=== PATIENT | female | born 1965 | race Caucasian/White ===

== ENCOUNTER 2016-11-06 08:11 | Day surgery (SDC) | payer MEDICARE, MEDICAID ==
[~2016-11-06] VITALS: Ht 162.6 cm; Wt 83.9 kg
[2016-11-06] VITALS (8 sets, daily range): BP systolic 103–120; BP diastolic 61–70; PULSE 68–88; TEMP 97.5–97.7
[2016-11-06] MEDS ORDERED: MACRODANTIN50 MG/CA1 PO (08:58)
[2016-11-06] MEDS ORDERED: SYNTHROID 0.0.025 MG PO (09:00)
[2016-11-06] MEDS ORDERED: IBU800 M1 PO (09:01)
[2016-11-06] MEDS ORDERED: FLOMAX 0.40.4 MG/CAP PO (09:02)
[2016-11-06] MEDS ORDERED: FLONASE NASAL S16 GM NS (09:09)
[2016-11-06] MEDS ORDERED: K-DUR20 MEQ PO (09:11)
[2016-11-06] MEDS ORDERED: ENULOSE10 GM/151 PO (09:13)
[2016-11-06] MEDS ORDERED: GLUCOPHAGE1000 MG PO (09:14)
[2016-11-06] MEDS ORDERED: GRALISE600 MG PO (09:15)
[2016-11-06] MEDS ORDERED: ZANAFLEX 4MG TAB4 MG PO (09:15)
[2016-11-06] MEDS ORDERED: FAMVIR 500500 MG/TAB PO (09:16)
[2016-11-06] MEDS ORDERED: ACTIGALL 300MG300 MG PO (09:17)
[2016-11-06] MEDS ORDERED: LASIX 40MG TABL40 MG PO (09:18)
[2016-11-06] MEDS ORDERED: VITAMIN D 50,1.25 MG PO (09:19)
[2016-11-06] MEDS ORDERED: FERRO-TIME325 MG PO (09:19)
[2016-11-06] MEDS ORDERED: COMBIRESP IH (09:20)
[2016-11-06] MEDS ORDERED: MAG-OX 400400 MG/TAB PO (09:21)
[2016-11-06] MEDS ORDERED: NATURAL E400 IU PO (09:21)
[2016-11-06] MEDS ORDERED: VITAMIN D31000 I1 PO (09:22)
[2016-11-06] MEDS ORDERED: CALCIUM CARBON650 M2 (09:23)
[2016-11-06] MEDS ORDERED: VITAMINC1000TA PO (09:23)
[2016-11-06] MEDS ORDERED: MULTI VITAMINS1 TAB PO (09:24)
[2016-11-06] MEDS ORDERED: ZOVIRAX 200MG200 MG PO (09:25)
== END 2016-11-06 11:40 | disposition home or self-care (01) ==
LOC: SDCO 08:11
DX: K25.7 Chronic gastric ulcer without hemorrhage or perforation (principal); K74.60 Unspecified cirrhosis of liver; K21.9 Gastro-esophageal reflux disease without esophagitis; K75.81 Nonalcoholic steatohepatitis (NASH); R74.8 Abnormal levels of other serum enzymes; K62.89 Other specified diseases of anus and rectum; D64.9 Anemia, unspecified; E11.9 Type 2 diabetes mellitus without complications; K44.9 Diaphragmatic hernia without obstruction or gangrene; E78.00 Pure hypercholesterolemia, unspecified; K58.9 Irritable bowel syndrome, unspecified
CPT/HCPCS: J1644; J2250; J3010; J7030

== ENCOUNTER → 2017-07-12 | Outpatient (CLI) | payer MEDICARE, MEDICAID ==
[~2017-07-12] MED LIST: ACTIGALL 300MG300 MG PO; CALCIUM CARBON650 M2; COMBIRESP IH; ENULOSE10 GM/151 PO; FAMVIR 500500 MG/TAB PO; FERRO-TIME325 MG PO; FLOMAX 0.40.4 MG/CAP PO; FLONASE NASAL S16 GM NS; GLUCOPHAGE1000 MG PO; GRALISE600 MG PO; IBU800 M1 PO; K-DUR20 MEQ PO; LASIX 40MG TABL40 MG PO; MACRODANTIN50 MG/CA1 PO; MAG-OX 400400 MG/TAB PO; MULTI VITAMINS1 TAB PO; NATURAL E400 IU PO; SYNTHROID 0.0.025 MG PO; VITAMIN D 50,1.25 MG PO; VITAMIN D31000 I1 PO; VITAMINC1000TA PO; ZANAFLEX 4MG TAB4 MG PO; ZOVIRAX 200MG200 MG PO
== END ==
LOC: COL.RAD 07:36
DX: R11.2 Nausea with vomiting, unspecified (principal)
CPT/HCPCS: A9541

== ENCOUNTER 2018-01-16 20:40 | Emergency (ER) | payer MEDICARE, MEDICAID ==
[~2018-01-16] VITALS: Ht 162.6 cm; Wt 78.9 kg
[2018-01-16 20:46] VITALS: TEMP 97.7
[2018-01-16] MEDS ORDERED: ALDACTONE50 MG PO (21:58)
[2018-01-16] MEDS ORDERED: GLUCOTROL XL2.5 MG PO (21:59)
[2018-01-16 22:00] LABS: COLLECTION METHOD CLEAN CATCH
[2018-01-16 22:04] LABS: BASO % 0.3 % (0.0-2.0); EOS # 0.1 (0.0-0.7); EOS % 2.9 % (0-4.0); GRAN # 0.9 (1.4-6.5); GRAN % 30.2 % (42.2-75.2); HEMOGLOBIN 10.6 g/dl (12.5-16.0); LYMPH # 1.7 (1.2-3.4); LYMPH % 53.4 % (20.0-51.0); MEAN CELL VOLUME 99 fl (80.0-100.0); MEAN CORPUSCULAR HEMOGLOBIN 36 pg (27.0-31.0); MEAN CORPUSCULAR HGB CONC 36 g/dl (33.0-37.0); MEAN PLATELET VOLUME 10.5 fl (7.4-10.4); MONO # 0.4 (0.1-0.6); MONO % 12.9 % (1.7-9.3); PLATELET COUNT 65 K/mm3 (130-400); RED BLOOD COUNT 2.99 M/mm3 (4.10-5.30); REDCELL DISTRIBUTION WIDTH-CV 13.4 % (11.5-14.5)
[2018-01-16 22:09] LABS: PH 7 (5-8); SQUAMOUS EPITHELIAL 0-2 /hpf; URINE APPEARANCE Clear; URINE BACTERIA Rare /hpf; URINE BILIRUBIN Negative (NEGATIVE); URINE BLOOD Negative (NEGATIVE); URINE COLOR Yellow; URINE GLUCOSE Negative (NEGATIVE); URINE KETONE Negative (NEGATIVE); URINE LEUKOCYTE ESTERASE Negative (NEGATIVE); URINE NITRATE Negative (NEGATIVE); URINE PROTEIN(semi-quant) Negative (NEGATIVE); URINE RBC 0-2 /hpf; URINE UROBILINOGEN >=4.0 mg/dL (NEGATIVE)
[2018-01-16 22:10] LABS: HEMATOCRIT 29.5 % (37.0-47.0)
[2018-01-16 22:13] LABS: ALANINE AMINOTRANSFERASE 49 U/L (9-52); ALBUMIN 2.9 gm/dL (3.5-5.0); ALKALINE PHOSPHATASE 196 U/L (50-136); ANION GAP 9 mmol/L (7-16); AST,SGOT 78 U/L (15-37); BILIRUBIN,TOTAL 3.3 mg/dL (0.0-1.0); BLOOD UREA NITROGEN 7 mg/dL (7-17); CALCIUM 9.1 mg/dL (8.4-10.2); CARBON DIOXIDE 21 mmol/L (22-30); CHLORIDE 107 mmol/L (98-107); CREATININE, serum 0.67 mg/dL (0.52-1.25); GLUCOSE 64 mg/dL (74-106); POTASSIUM 4.2 mmol/L (3.4-5.0); SODIUM 137 mmol/L (137-145)
[2018-01-16 22:25] LABS: TROPONIN-I < 0.012 ng/mL (0.000-0.034)
[2018-01-16] MEDS ORDERED: NORCO 325 MG-51 TAB PO (23:44)
[2018-01-16] MEDS ORDERED: LIDODERM 5% PATC1 EA TP (23:44)
[2018-01-17 01:15] VITALS: BP 100/40; PULSE 63
== END 2018-01-17 01:22 | disposition home or self-care (01) ==
LOC: COL.ER 20:40
PROVIDERS: Emergency Medicine
DX: G89.29 Other chronic pain (principal); M79.18 Myalgia, other site; M54.6 Pain in thoracic spine; E11.9 Type 2 diabetes mellitus without complications; E03.9 Hypothyroidism, unspecified; Z90.49 Acquired absence of other specified parts of digestive tract; Z90.89 Acquired absence of other organs; Z90.710 Acquired absence of both cervix and uterus; Z87.891 Personal history of nicotine dependence; Z79.84 Long term (current) use of oral hypoglycemic drugs
CPT/HCPCS: J3010

== ENCOUNTER 2018-05-09 18:27 | Emergency (ER) | payer MEDICARE, MEDICAID ==
[~2018-05-09] VITALS: Ht 162.6 cm; Wt 81.8 kg
[~2018-05-09 18:27] MED LIST changes: +ALDACTONE50 MG PO; +GLUCOTROL XL2.5 MG PO; +LIDODERM 5% PATC1 EA TP; +NORCO 325 MG-51 TAB PO
[2018-05-09 18:33] VITALS: TEMP 97.5
[2018-05-09 19:13] LABS: BASO % 0.4 % (0.0-2.0); EOS # 0.1 (0.0-0.7); EOS % 1.5 % (0-4.0); GRAN # 2.6 (1.4-6.5); GRAN % 54.1 % (42.2-75.2); LYMPH # 1.4 (1.2-3.4); MEAN CELL VOLUME 98 fl (80.0-100.0); MEAN CORPUSCULAR HGB CONC 36 g/dl (33.0-37.0); MEAN PLATELET VOLUME 9.4 fl (7.4-10.4); MONO # 0.7 (0.1-0.6); MONO % 13.8 % (1.7-9.3); PLATELET COUNT 72 K/mm3 (130-400); RED BLOOD COUNT 2.82 M/mm3 (4.10-5.30); REDCELL DISTRIBUTION WIDTH-CV 15.4 % (11.5-14.5)
[2018-05-09 19:15] LABS: INR 1.8 (0.8-3.0)
[2018-05-09 19:16] LABS: HEMATOCRIT 27.6 % (37.0-47.0); HEMOGLOBIN 9.9 g/dl (12.5-16.0); MEAN CORPUSCULAR HEMOGLOBIN 35 pg (27.0-31.0)
[2018-05-09 19:17] LABS: PARTIAL THROMBOPLASTIN TIME 97.1 SECONDS (26.0-37.0)
[2018-05-09 19:25] LABS: ALANINE AMINOTRANSFERASE 53 U/L (9-52); ALBUMIN 3.1 gm/dL (3.5-5.0); ALKALINE PHOSPHATASE 155 U/L (50-136); ANION GAP 14 mmol/L (7-16); AST,SGOT 186 U/L (15-37); BILIRUBIN,TOTAL 6.5 mg/dL (0.0-1.0); BLOOD UREA NITROGEN 27 mg/dL (7-17); CALCIUM 10.3 mg/dL (8.4-10.2); CARBON DIOXIDE 20 mmol/L (22-30); CHLORIDE 97 mmol/L (98-107); CREATININE, serum 1.28 mg/dL (0.52-1.25); GLUCOSE 121 mg/dL (74-106); POTASSIUM 3.7 mmol/L (3.4-5.0); SODIUM 131 mmol/L (137-145); TOTAL PROTEIN 6.3 gm/dL (6.4-8.2)
[2018-05-09] MEDS ORDERED: PHARMASSURE MA500 MG PO (19:28)
[2018-05-09 19:33] LABS: CREATINE KINASE 2829 U/L (30-135)
[2018-05-09 19:38] LABS: TROPONIN-I < 0.012 ng/mL (0.000-0.035)
[2018-05-09 23:14] LABS: COLLECTION METHOD CLEAN CATCH
[2018-05-09 23:38] LABS: HYALINE CAST >12 /lpf; MUCOUS Present /lpf; PH 5 (5-8); SQUAMOUS EPITHELIAL 0-2 /hpf; URINE APPEARANCE Hazy; URINE BACTERIA Rare /hpf; URINE BILIRUBIN Negative (NEGATIVE); URINE BLOOD Negative (NEGATIVE); URINE COLOR Yellow; URINE GLUCOSE Negative (NEGATIVE); URINE KETONE Negative (NEGATIVE); URINE LEUKOCYTE ESTERASE Negative (NEGATIVE); URINE NITRATE Negative (NEGATIVE); URINE PROTEIN(semi-quant) Negative (NEGATIVE); URINE RBC 0-2 /hpf; URINE UROBILINOGEN >=4.0 mg/dL (NEGATIVE)
[2018-05-10 00:30] VITALS: BP 106/63; PULSE 98
== END 2018-05-10 01:15 | disposition short-term general hospital (02) ==
LOC: COL.ER 18:27
PROVIDERS: Emergency Medicine
DX: K72.90 Hepatic failure, unspecified without coma (principal); E11.9 Type 2 diabetes mellitus without complications; E03.9 Hypothyroidism, unspecified; K27.9 Peptic ulcer, site unspecified, unspecified as acute or chronic, without hemorrhage or perforation; F17.210 Nicotine dependence, cigarettes, uncomplicated; Z79.84 Long term (current) use of oral hypoglycemic drugs; Z90.49 Acquired absence of other specified parts of digestive tract; Z90.710 Acquired absence of both cervix and uterus; Z87.19 Personal history of other diseases of the digestive system
CPT/HCPCS: J7030

== ENCOUNTER → 2018-08-24 | Outpatient (CLI) | payer MEDICARE, MEDICAID ==
[~2018-08-24] MED LIST changes: +PHARMASSURE MA500 MG PO
== END ==
LOC: COL.RAD 07:58
DX: K74.60 Unspecified cirrhosis of liver (principal); K72.90 Hepatic failure, unspecified without coma; R97.8 Other abnormal tumor markers; Z53.8 Procedure and treatment not carried out for other reasons

== ENCOUNTER → 2018-11-24 | Outpatient (CLI) | payer MEDICARE, MEDICAID | LOC: COL.RAD 11-14 07:30 | DX: Z01.812 Encounter for preprocedural laboratory examination (principal); K74.60 Unspecified cirrhosis of liver; K76.6 Portal hypertension; R16.1 Splenomegaly, not elsewhere classified; I86.8 Varicose veins of other specified sites; R74.8 Abnormal levels of other serum enzymes; K72.90 Hepatic failure, unspecified without coma; Z90.49 Acquired absence of other specified parts of digestive tract | CPT/HCPCS: A9585 ==

== ENCOUNTER → 2018-12-13 | Outpatient (CLI) | payer MEDICARE, MEDICAID | LOC: MC.RAD 13:30 | DX: Z12.31 Encounter for screening mammogram for malignant neoplasm of breast (principal); N64.89 Other specified disorders of breast ==

== ENCOUNTER → 2018-12-23 | Outpatient (CLI) | payer MEDICARE, MEDICAID | LOC: MC.RAD 14:00 | DX: N64.89 Other specified disorders of breast (principal) ==

== ENCOUNTER 2019-02-17 10:29 | Emergency (ER) | payer MEDICARE, MEDICAID ==
[~2019-02-17] VITALS: Ht 162.6 cm; Wt 78.2 kg
[2019-02-17 12:25] LABS: MEAN CELL VOLUME 102 fl (80.0-100.0); MEAN CORPUSCULAR HGB CONC 34 g/dl (33.0-37.0); MEAN PLATELET VOLUME 10.8 fl (7.4-10.4); PLATELET COUNT 72 K/mm3 (130-400); RED BLOOD COUNT 2.74 M/mm3 (4.10-5.30)
[2019-02-17 12:30] LABS: HEMOGLOBIN 9.4 g/dl (12.5-16.0); MEAN CORPUSCULAR HEMOGLOBIN 34 pg (27.0-31.0)
[2019-02-17 12:40] LABS: BAND 2 % (0-10); LYMPHOCYTE 34 % (20.0-51.0); METAMYELOCYTE 1 % (0-0); NEUTROPHILS 61 % (42.0-75.2); PLATELET ESTIMATE DECREASED (NORMAL); POLYCHROMASIA 1+; TARGET CELLS 1+
[2019-02-17 12:41] LABS: LACTIC ACID 4.3 mmol/L (0.4-2.0)
[2019-02-17 12:42] LABS: ALBUMIN 2.6 gm/dL (3.5-5.0); BILIRUBIN,TOTAL 5.9 mg/dL (0.0-1.0); C-REACTIVE PROTEIN 2.9 mg/dL (0.0-0.9); CALCIUM 8.3 mg/dL (8.4-10.2); CREATININE, serum 0.63 (0.52-1.25); POTASSIUM 3.7 mmol/L (3.4-5.0); TOTAL PROTEIN 5.5 gm/dL (6.4-8.2)
[2019-02-17 13:04] LABS: INR 1.8 (0.8-3.0); PROTHROMBIN TIME 21.3 SECONDS (9.7-12.8)
[2019-02-17] MEDS ORDERED: XIFAXAN550 MG PO (16:09)
[2019-02-17 19:15] VITALS: BP 121/47; PULSE 98; TEMP 98.4
== END 2019-02-17 19:15 | disposition short-term general hospital (02) ==
LOC: COL.ER 10:29
PROVIDERS: Emergency Medicine
DX: K72.90 Hepatic failure, unspecified without coma (principal); E87.2 Acidosis; Z79.84 Long term (current) use of oral hypoglycemic drugs
CPT/HCPCS: J0692; J2405; J7030

== ENCOUNTER 2019-02-28 18:05 | Inpatient (IN) | payer MEDICARE, MEDICAID ==
[~2019-02-28] VITALS: Ht 167.6 cm; Wt 89.9 kg
[~2019-02-28 18:05] MED LIST changes: +CALCIUM 600 PLU1 TAB PO; -CALCIUM CARBON650 M2; -PHARMASSURE MA500 MG PO; -SYNTHROID 0.0.025 MG PO; +SYNTHROID 0.10.15 MG PO; +XIFAXAN550 MG PO
[2019-02-28 18:44] LABS: BASO % 0.4 % (0.0-2.0); EOS % 1.2 % (0-4.0); GRAN # 1.1 (1.4-6.5); LYMPH % 38.8 % (20.0-51.0); MEAN CELL VOLUME 104 fl (80.0-100.0); MEAN CORPUSCULAR HGB CONC 34 g/dl (33.0-37.0); MEAN PLATELET VOLUME 10.7 fl (7.4-10.4); MONO # 0.4 (0.1-0.6); MONO % 15.2 % (1.7-9.3); PLATELET COUNT 73 K/mm3 (130-400); RED BLOOD COUNT 2.68 M/mm3 (4.10-5.30); REDCELL DISTRIBUTION WIDTH-CV 17.4 % (11.5-14.5)
[2019-02-28 18:45] LABS: HEMATOCRIT 27.9 % (37.0-47.0); HEMOGLOBIN 9.5 g/dl (12.5-16.0); MEAN CORPUSCULAR HEMOGLOBIN 35 pg (27.0-31.0)
[2019-02-28 18:48] LABS: INR 1.8 (0.8-3.0); PROTHROMBIN TIME 21.4 SECONDS (9.7-12.8)
[2019-02-28 18:52] LABS: ALBUMIN 2.9 gm/dL (3.5-5.0); BILIRUBIN,TOTAL 5.7 mg/dL (0.0-1.0); CALCIUM 9.2 mg/dL (8.4-10.2); CREATININE, serum 0.65 (0.52-1.25); POTASSIUM 3.9 mmol/L (3.4-5.0); TOTAL PROTEIN 5.9 gm/dL (6.4-8.2)
[2019-02-28 20:31] LABS: COLLECTION METHOD CLEAN CATCH
[2019-02-28 20:40] LABS: MUCOUS Present /lpf; PH 5 (5-8); SQUAMOUS EPITHELIAL 0-2 /hpf; URINE APPEARANCE Clear; URINE BACTERIA None Seen /hpf; URINE BILIRUBIN Negative (NEGATIVE); URINE BLOOD 1+ (NEGATIVE); URINE COLOR Yellow; URINE GLUCOSE Negative (NEGATIVE); URINE KETONE Negative (NEGATIVE); URINE LEUKOCYTE ESTERASE Negative (NEGATIVE); URINE NITRATE Negative (NEGATIVE); URINE PROTEIN(semi-quant) Negative (NEGATIVE)
[2019-02-28 20:48] LABS: TRICYCLIC ANTIDEPRESS URINE NEGATIVE
[2019-02-28] MEDS ORDERED: GLUCOPHAGE1000 MG PO (21:33)
[2019-02-28] MEDS ORDERED: VITAMIND3 5000 PO (21:38)
[2019-02-28] MEDS ORDERED: ZOFRAN ODT4 MG PO (21:53)
[2019-02-28] MEDS ORDERED: ZOVIRAX5% TP (22:28)
[2019-02-28] MEDS ORDERED: PRIL40 PO (22:31)
[2019-02-28] MEDS ORDERED: [UNRECOGNIZED DRUG - OTHER] PO (22:35)
[2019-02-28] MEDS ORDERED: FOLIC ACID 11 MG/TA1 PO (22:36)
[2019-02-28] MEDS ORDERED: NEURONTIN600 MG/TAB PO ×2 (22:37→22:38)
[2019-02-28] MEDS ORDERED: AMITIZA24 MCG PO (22:41)
[2019-02-28] MEDS ORDERED: PROAMATINE10 MG PO ×2 (22:42)
[2019-02-28] MEDS ORDERED: BENADRYL25 M2 PO (22:58)
[2019-03-01] VITALS (7 sets, daily range): BP systolic 95–139; BP diastolic 34–66; PULSE 71–94; TEMP 97.9–100.8
[2019-03-01 07:20] LABS: ALBUMIN 2.8 gm/dL (3.5-5.0); BILIRUBIN,TOTAL 5.7 mg/dL (0.0-1.0); CALCIUM 8.4 mg/dL (8.4-10.2); CREATININE, serum 0.57 (0.52-1.25); POTASSIUM 3.5 mmol/L (3.4-5.0); TOTAL PROTEIN 5.3 gm/dL (6.4-8.2)
[2019-03-01 07:21] LABS: MEAN CELL VOLUME 103 fl (80.0-100.0); MEAN CORPUSCULAR HGB CONC 34 g/dl (33.0-37.0); MEAN PLATELET VOLUME 11.1 fl (7.4-10.4); PLATELET COUNT 54 K/mm3 (130-400); REDCELL DISTRIBUTION WIDTH-CV 17.7 % (11.5-14.5)
[2019-03-01 07:23] LABS: HEMATOCRIT 22.7 % (37.0-47.0); HEMOGLOBIN 7.7 g/dl (12.5-16.0); MEAN CORPUSCULAR HEMOGLOBIN 35 pg (27.0-31.0)
[2019-03-01 10:05] LABS: ANISOCYTOSIS 2+; EOSINOPHIL 4 % (0-4); LYMPHOCYTE 46 % (20.0-51.0); NEUTROPHILS 48 % (42.0-75.2); PLATELET ESTIMATE DECREASED (NORMAL)
[2019-03-01 17:49] LABS: BASO % 0.4 % (0.0-2.0); EOS % 1.3 % (0-4.0); GRAN # 1.4 (1.4-6.5); GRAN % 56.6 % (42.2-75.2); LYMPH # 0.8 (1.2-3.4); LYMPH % 31.7 % (20.0-51.0); MEAN CELL VOLUME 105 fl (80.0-100.0); MEAN CORPUSCULAR HGB CONC 34 g/dl (33.0-37.0); MEAN PLATELET VOLUME 11.4 fl (7.4-10.4); MONO # 0.2 (0.1-0.6); PLATELET COUNT 66 K/mm3 (130-400); RED BLOOD COUNT 2.34 M/mm3 (4.10-5.30); REDCELL DISTRIBUTION WIDTH-CV 18.3 % (11.5-14.5)
[2019-03-01 17:56] LABS: HEMATOCRIT 24.5 % (37.0-47.0); HEMOGLOBIN 8.3 g/dl (12.5-16.0); MEAN CORPUSCULAR HEMOGLOBIN 35 pg (27.0-31.0)
[2019-03-02 03:28] VITALS: BP 83/32; PULSE 68; TEMP 98.3
[2019-03-02 07:48] VITALS: BP 86/28; PULSE 61; TEMP 98
[2019-03-02 09:50] LABS: MEAN CELL VOLUME 107 fl (80.0-100.0); MEAN CORPUSCULAR HGB CONC 33 g/dl (33.0-37.0); MEAN PLATELET VOLUME 11.3 fl (7.4-10.4); PLATELET COUNT 57 K/mm3 (130-400); RED BLOOD COUNT 2.18 M/mm3 (4.10-5.30)
[2019-03-02 09:53] LABS: HEMATOCRIT 23.4 % (37.0-47.0); HEMOGLOBIN 7.8 g/dl (12.5-16.0); MEAN CORPUSCULAR HEMOGLOBIN 36 pg (27.0-31.0)
[2019-03-02 09:59] LABS: ALBUMIN 2.6 gm/dL (3.5-5.0); BILIRUBIN UNCONJUGATED 3.4 mg/dL (0.0-1.1); BILIRUBIN,DIRECT 1.6 mg/dL (0.0-0.4); CALCIUM 8.1 mg/dL (8.4-10.2); CREATININE, serum 0.55 (0.52-1.25); POTASSIUM 3.5 mmol/L (3.4-5.0); TOTAL PROTEIN 5.3 gm/dL (6.4-8.2)
[2019-03-02 10:08] LABS: MAGNESIUM 1.5 mg/dL (1.6-2.3); PHOSPHOROUS 2.7 mg/dL (2.5-4.5)
[2019-03-02 10:58] VITALS: BP 105/49; PULSE 90; TEMP 98.1
[2019-03-02 10:59] LABS: ANISOCYTOSIS 1+; BAND 4 % (0-10); LYMPHOCYTE 50 % (20.0-51.0); NEUTROPHILS 46 % (42.0-75.2); OVALOCYTES 1+; PLATELET ESTIMATE DECREASED (NORMAL)
[2019-03-02] MEDS ORDERED: XIFAXAN550 MG PO ×2 (15:31)
[2019-03-02] MEDS ORDERED: QUESTRAN LI4 GM/5 GM PO (15:32)
[2019-03-02] MEDS ORDERED: NEURONTIN600 MG/TAB PO (15:32)
[2019-03-02] MEDS ORDERED: MAG-OX 400400 MG/TAB PO ×2 (15:33)
[2019-03-02 16:10] VITALS: BP 105/53; PULSE 71; TEMP 98.6
[2019-03-02 21:28] VITALS: BP 92/46; PULSE 68; TEMP 99
[2019-03-03] VITALS (7 sets, daily range): BP systolic 83–108; BP diastolic 39–46; PULSE 62–68; TEMP 97.9–99.7
[2019-03-03 08:33] LABS: MEAN CELL VOLUME 107 fl (80.0-100.0); MEAN CORPUSCULAR HGB CONC 33 g/dl (33.0-37.0); MEAN PLATELET VOLUME 10.9 fl (7.4-10.4); PLATELET COUNT 58 K/mm3 (130-400); RED BLOOD COUNT 2.13 M/mm3 (4.10-5.30); REDCELL DISTRIBUTION WIDTH-CV 17.6 % (11.5-14.5)
[2019-03-03 08:43] LABS: CALCIUM 8.1 mg/dL (8.4-10.2); CREATININE, serum 0.56 (0.52-1.25); MAGNESIUM 1.5 mg/dL (1.6-2.3)
[2019-03-03 08:51] LABS: HEMATOCRIT 22.7 % (37.0-47.0); HEMOGLOBIN 7.5 g/dl (12.5-16.0); MEAN CORPUSCULAR HEMOGLOBIN 35 pg (27.0-31.0)
[2019-03-03 09:42] LABS: BAND 5 % (0-10); EOSINOPHIL 3 % (0-4); LYMPHOCYTE 40 % (20.0-51.0); NEUTROPHILS 41 % (42.0-75.2)
[2019-03-03 09:43] LABS: TEAR DROP CELLS 1+
[2019-03-03 09:44] LABS: ANISOCYTOSIS 1+; PLATELET ESTIMATE DECREASED (NORMAL); SCHISTOCYTES 1+
[2019-03-04 03:17] VITALS: BP 105/45; PULSE 65; TEMP 98.6
[2019-03-04 08:01] LABS: MEAN CELL VOLUME 107 fl (80.0-100.0); MEAN CORPUSCULAR HGB CONC 33 g/dl (33.0-37.0); MEAN PLATELET VOLUME 11.8 fl (7.4-10.4); PLATELET COUNT 65 K/mm3 (130-400); REDCELL DISTRIBUTION WIDTH-CV 17.7 % (11.5-14.5)
[2019-03-04 08:23] LABS: ALBUMIN 2.4 gm/dL (3.5-5.0); BILIRUBIN,TOTAL 4.5 mg/dL (0.0-1.0); CALCIUM 8.5 mg/dL (8.4-10.2); CREATININE, serum 0.51 (0.52-1.25); MAGNESIUM 1.6 mg/dL (1.6-2.3); POTASSIUM 4.4 mmol/L (3.4-5.0); TOTAL PROTEIN 5.1 gm/dL (6.4-8.2)
[2019-03-04 08:47] LABS: HEMATOCRIT 23.5 % (37.0-47.0); HEMOGLOBIN 7.8 g/dl (12.5-16.0); MEAN CORPUSCULAR HEMOGLOBIN 35 pg (27.0-31.0)
[2019-03-04 09:04] LABS: ANISOCYTOSIS 1+; BAND 9 % (0-10); EOSINOPHIL 2 % (0-4); LYMPHOCYTE 32 % (20.0-51.0); NEUTROPHILS 47 % (42.0-75.2); PLATELET ESTIMATE DECREASED (NORMAL)
[2019-03-04 12:27] VITALS: BP 100/46; PULSE 64; TEMP 98.7
[2019-03-04 16:10] VITALS: BP 107/43; PULSE 67; TEMP 98.2
[2019-03-04 20:01] VITALS: BP 102/34; PULSE 69; TEMP 98.7
[2019-03-04 23:50] VITALS: BP 86/36; PULSE 61; TEMP 98.5
[2019-03-05 03:52] VITALS: BP 87/44; PULSE 65; TEMP 99.2
[2019-03-05 07:30] VITALS: BP 98/37; PULSE 59; TEMP 98.8
[2019-03-05 07:42] LABS: BASO % 0.5 % (0.0-2.0); EOS % 1.9 % (0-4.0); LYMPH # 0.7 (1.2-3.4); LYMPH % 31.3 % (20.0-51.0); MEAN CELL VOLUME 105 fl (80.0-100.0); MEAN CORPUSCULAR HGB CONC 34 g/dl (33.0-37.0); MEAN PLATELET VOLUME 11.5 fl (7.4-10.4); MONO # 0.4 (0.1-0.6); MONO % 16.8 % (1.7-9.3); PLATELET COUNT 61 K/mm3 (130-400); RED BLOOD COUNT 2.24 M/mm3 (4.10-5.30); REDCELL DISTRIBUTION WIDTH-CV 17.9 % (11.5-14.5)
[2019-03-05 07:43] LABS: HEMATOCRIT 23.4 % (37.0-47.0); HEMOGLOBIN 7.9 g/dl (12.5-16.0); MEAN CORPUSCULAR HEMOGLOBIN 35 pg (27.0-31.0)
[2019-03-05 07:58] LABS: ALBUMIN 2.4 gm/dL (3.5-5.0); BILIRUBIN,TOTAL 5.1 mg/dL (0.0-1.0); CALCIUM 8.2 mg/dL (8.4-10.2); CREATININE, serum 0.61 (0.52-1.25); MAGNESIUM 1.5 mg/dL (1.6-2.3); POTASSIUM 4.2 mmol/L (3.4-5.0)
[2019-03-05 11:08] VITALS: BP 97/50; PULSE 56; TEMP 98.5
[2019-03-05 16:00] VITALS: BP 95/42; PULSE 63; TEMP 98.9
[2019-03-05 19:33] VITALS: BP 112/52; PULSE 69; TEMP 98.9
[2019-03-05 22:56] VITALS: BP 83/39; PULSE 62; TEMP 99.3
[2019-03-06 04:41] VITALS: BP 91/45; PULSE 59; TEMP 98.7
[2019-03-06 06:09] LABS: MEAN CELL VOLUME 107 fl (80.0-100.0); MEAN CORPUSCULAR HGB CONC 33 g/dl (33.0-37.0); MEAN PLATELET VOLUME 11.7 fl (7.4-10.4); PLATELET COUNT 59 K/mm3 (130-400); RED BLOOD COUNT 2.17 M/mm3 (4.10-5.30); REDCELL DISTRIBUTION WIDTH-CV 18.5 % (11.5-14.5)
[2019-03-06 06:14] LABS: HEMATOCRIT 23.1 % (37.0-47.0); HEMOGLOBIN 7.6 g/dl (12.5-16.0); MEAN CORPUSCULAR HEMOGLOBIN 35 pg (27.0-31.0)
[2019-03-06 06:23] LABS: CALCIUM 7.7 mg/dL (8.4-10.2); CREATININE, serum 0.65 (0.52-1.25); MAGNESIUM 2.1 mg/dL (1.6-2.3); POTASSIUM 3.9 mmol/L (3.4-5.0)
[2019-03-06 07:32] LABS: ANISOCYTOSIS 1+; BAND 8 % (0-10); LYMPHOCYTE 34 % (20.0-51.0); METAMYELOCYTE 1 % (0-0); MYELOCYTE 1 % (0-0); NEUTROPHILS 52 % (42.0-75.2); OVALOCYTES 2+; PLATELET ESTIMATE DECREASED (NORMAL); TEAR DROP CELLS 1+
[2019-03-06 08:43] LABS: ALBUMIN 2.2 gm/dL (3.5-5.0); BILIRUBIN,TOTAL 4.4 mg/dL (0.0-1.0); TOTAL PROTEIN 4.7 gm/dL (6.4-8.2)
[2019-03-06 08:55] VITALS: BP 99/42; PULSE 56; TEMP 98.7
[2019-03-06 13:12] VITALS: BP 90/32; PULSE 62; TEMP 98.4
[2019-03-06 16:50] VITALS: BP 105/46; PULSE 61; TEMP 99.1
[2019-03-06 20:36] VITALS: BP 100/40; PULSE 66; TEMP 99.7
[2019-03-06 22:48] VITALS: BP 81/48; PULSE 65; TEMP 99.1
[2019-03-07 04:15] VITALS: BP 89/40; PULSE 55; TEMP 98.5
[2019-03-07 06:39] LABS: INR 2.4 (0.8-3.0); PROTHROMBIN TIME 28.2 SECONDS (9.7-12.8)
[2019-03-07 06:43] LABS: MEAN CELL VOLUME 107 fl (80.0-100.0); MEAN CORPUSCULAR HGB CONC 33 g/dl (33.0-37.0); MEAN PLATELET VOLUME 11.9 fl (7.4-10.4); PLATELET COUNT 61 K/mm3 (130-400); RED BLOOD COUNT 2.21 M/mm3 (4.10-5.30); REDCELL DISTRIBUTION WIDTH-CV 18.8 % (11.5-14.5)
[2019-03-07 06:48] LABS: ALBUMIN 2.3 gm/dL (3.5-5.0); CALCIUM 7.7 mg/dL (8.4-10.2); CREATININE, serum 0.65 (0.52-1.25); POTASSIUM 3.8 mmol/L (3.4-5.0); TOTAL PROTEIN 4.9 gm/dL (6.4-8.2)
[2019-03-07 07:19] LABS: HEMATOCRIT 23.7 % (37.0-47.0); HEMOGLOBIN 7.8 g/dl (12.5-16.0); MEAN CORPUSCULAR HEMOGLOBIN 35 pg (27.0-31.0)
[2019-03-07 08:15] VITALS: BP 93/42; PULSE 52; TEMP 98.4
[2019-03-07 08:46] LABS: BAND 8 % (0-10); EOSINOPHIL 1 % (0-4); LYMPHOCYTE 53 % (20.0-51.0); METAMYELOCYTE 3 % (0-0); NEUTROPHILS 32 % (42.0-75.2)
[2019-03-07 08:48] LABS: PLATELET ESTIMATE DECREASED (NORMAL)
[2019-03-07 11:43] VITALS: BP 96/44; PULSE 58; TEMP 97.6
[2019-03-07 16:01] VITALS: BP 95/42; PULSE 75; TEMP 100
[2019-03-07 20:03] VITALS: BP 110/44; PULSE 83; TEMP 98.6
[2019-03-08 06:16] LABS: MEAN CELL VOLUME 105 fl (80.0-100.0); MEAN CORPUSCULAR HGB CONC 33 g/dl (33.0-37.0); MEAN PLATELET VOLUME 11.6 fl (7.4-10.4); PLATELET COUNT 59 K/mm3 (130-400); RED BLOOD COUNT 2.15 M/mm3 (4.10-5.30); REDCELL DISTRIBUTION WIDTH-CV 18.3 % (11.5-14.5)
[2019-03-08 06:37] LABS: HEMATOCRIT 22.5 % (37.0-47.0); HEMOGLOBIN 7.5 g/dl (12.5-16.0); MEAN CORPUSCULAR HEMOGLOBIN 35 pg (27.0-31.0)
[2019-03-08 06:40] LABS: ALBUMIN 2.3 gm/dL (3.5-5.0); BILIRUBIN,TOTAL 4.1 mg/dL (0.0-1.0); CALCIUM 7.4 mg/dL (8.4-10.2); CREATININE, serum 0.64 (0.52-1.25); TOTAL PROTEIN 4.9 gm/dL (6.4-8.2)
[2019-03-08 07:14] VITALS: BP 89/48; PULSE 59; TEMP 99.3
[2019-03-08 07:15] LABS: ANISOCYTOSIS 2+; BAND 16 % (0-10); LYMPHOCYTE 38 % (20.0-51.0); NEUTROPHILS 32 % (42.0-75.2); PLATELET ESTIMATE DECREASED (NORMAL)
[2019-03-08 11:50] VITALS: BP 87/40; PULSE 66; TEMP 98.7
[2019-03-08 15:29] VITALS: BP 97/44; PULSE 66; TEMP 99.3
[2019-03-08 20:06] VITALS: BP 108/44; PULSE 75; TEMP 99.4
[2019-03-08 23:47] VITALS: BP 92/40; PULSE 68; TEMP 99.7
[2019-03-09 04:40] VITALS: BP 87/37; PULSE 62; TEMP 100.1
[2019-03-09 06:00] LABS: MEAN CELL VOLUME 109 fl (80.0-100.0); MEAN CORPUSCULAR HGB CONC 33 g/dl (33.0-37.0); PLATELET COUNT 54 K/mm3 (130-400); RED BLOOD COUNT 2.13 M/mm3 (4.10-5.30); REDCELL DISTRIBUTION WIDTH-CV 18.6 % (11.5-14.5)
[2019-03-09 06:23] LABS: ALBUMIN 2.3 gm/dL (3.5-5.0); BILIRUBIN,TOTAL 3.6 mg/dL (0.0-1.0); CALCIUM 7.4 mg/dL (8.4-10.2); CREATININE, serum 0.58 (0.52-1.25); TOTAL PROTEIN 4.9 gm/dL (6.4-8.2)
[2019-03-09 06:37] LABS: HEMATOCRIT 23.1 % (37.0-47.0); HEMOGLOBIN 7.5 g/dl (12.5-16.0); MEAN CORPUSCULAR HEMOGLOBIN 35 pg (27.0-31.0)
[2019-03-09 07:10] LABS: BAND 12 % (0-10); EOSINOPHIL 4 % (0-4); LYMPHOCYTE 42 % (20.0-51.0); METAMYELOCYTE 1 % (0-0); NEUTROPHILS 37 % (42.0-75.2); OVALOCYTES 2+; SCHISTOCYTES 1+
[2019-03-09 07:11] LABS: PLATELET ESTIMATE DECREASED (NORMAL); TEAR DROP CELLS 1+
[2019-03-09 07:38] VITALS: BP 92/36; PULSE 59; TEMP 99.1
[2019-03-09] MEDS ORDERED: XIFAXAN550 MG PO (10:57)
[2019-03-09] MEDS ORDERED: DOXYCYCLINE 10100 MG PO (11:00)
[2019-03-09] MEDS ORDERED: PROAIR HFA0.09 MG/AC IH (11:00)
[2019-03-09] MEDS ORDERED: MAG-OX 400400 MG/TAB PO (11:03)
[2019-03-09 12:04] VITALS: BP 92/39; PULSE 57; TEMP 98.4
[2019-03-09 15:22] VITALS: BP 93/39; PULSE 57; TEMP 98.5
== END 2019-03-09 19:15 | disposition home health service (06) | DRG 442 ==
LOC: COL.ER 18:05 → MEDICAL 20:17
PROVIDERS: Emergency Medicine; Hospitalist; Nurse Practitioner Family; Nurse Practitioner Primary Care; Physician Assistant; ADMIT Student in an Organized Health Care Education/Training Program
PROC: 02HV33Z Insertion of Infusion Device into Superior Vena Cava, Percutaneous Approach (ICD-10-PCS; principal; 2019-03-08)
DX: K72.90 Hepatic failure, unspecified without coma (principal); D61.818 Other pancytopenia; K74.60 Unspecified cirrhosis of liver; G47.00 Insomnia, unspecified; K59.00 Constipation, unspecified; E11.9 Type 2 diabetes mellitus without complications; E03.9 Hypothyroidism, unspecified; I95.9 Hypotension, unspecified; E83.42 Hypomagnesemia; R53.81 Other malaise; G40.909 Epilepsy, unspecified, not intractable, without status epilepticus; E88.09 Other disorders of plasma-protein metabolism, not elsewhere classified; Z79.84 Long term (current) use of oral hypoglycemic drugs; Z91.19 Patient's noncompliance with other medical treatment and regimen; Z90.49 Acquired absence of other specified parts of digestive tract; Z90.710 Acquired absence of both cervix and uterus; Z87.891 Personal history of nicotine dependence
CPT/HCPCS: 99223-AI; 99231-AI; 99232-AI; 99239; C9113; J1815; J2270; J2405; J2543; J2550; J3370; J3475; J7030; J7050; Q9967

== ENCOUNTER 2019-04-25 09:50 | Inpatient (IN) | payer MEDICARE, MEDICAID ==
[2019-04-25] VITALS (270 sets, daily range): BP systolic 99–118; BP diastolic 52–62; PULSE 103–105; TEMP 97.4–97.9; O2SAT 71–100
[~2019-04-25] VITALS: Ht 162.6 cm; Wt 105.9 kg
[~2019-04-25 09:50] MED LIST changes: +AMITIZA24 MCG PO; +BENADRYL25 M2 PO; +CONSTULOSE 20G/30ML PO; +DOXYCYCLINE 10100 MG PO; -ENULOSE10 GM/151 PO; +FOLIC ACID 11 MG/TA1 PO; +NEURONTIN600 MG/TAB PO; +PRIL40 PO; +PROAIR HFA0.09 MG/AC IH; +PROAMATINE10 MG PO; +QUESTRAN LI4 GM/5 GM PO; +VITAMIND3 5000 PO; +ZOFRAN ODT4 MG PO; +ZOVIRAX5% TP; +[UNRECOGNIZED DRUG - OTHER] PO
[2019-04-25 11:10] LABS: MEAN CELL VOLUME 104 fl (80.0-100.0); MEAN CORPUSCULAR HGB CONC 32 g/dl (33.0-37.0); MEAN PLATELET VOLUME 10.8 fl (7.4-10.4); PLATELET COUNT 76 K/mm3 (130-400); RED BLOOD COUNT 2.46 M/mm3 (4.10-5.30); REDCELL DISTRIBUTION WIDTH-CV 22.4 % (11.5-14.5)
[2019-04-25 11:14] LABS: INR 2.8 (0.8-3.0); PROTHROMBIN TIME 33.8 SECONDS (9.7-12.8)
[2019-04-25 11:16] LABS: PARTIAL THROMBOPLASTIN TIME 56.6 SECONDS (26.0-37.0)
[2019-04-25 11:19] LABS: HEMATOCRIT 25.5 % (37.0-47.0); HEMOGLOBIN 8.2 g/dl (12.5-16.0); MEAN CORPUSCULAR HEMOGLOBIN 33 pg (27.0-31.0)
[2019-04-25 11:25] LABS: ALANINE AMINOTRANSFERASE 37 U/L (9-52); ALBUMIN 1.9 gm/dL (3.5-5.0); ALKALINE PHOSPHATASE 180 U/L (50-136); ANION GAP 14 mmol/L (7-16); AST,SGOT 55 U/L (15-37); BILIRUBIN,TOTAL 4.7 mg/dL (0.0-1.0); BLOOD UREA NITROGEN 23 mg/dL (7-17); CALCIUM 8.6 mg/dL (8.4-10.2); CHLORIDE 100 mmol/L (98-107); CREATININE, serum 2.02 (0.52-1.25); GLUCOSE 129 mg/dL (74-106); POTASSIUM 4.5 mmol/L (3.4-5.0); SODIUM 127 mmol/L (137-145); TOTAL PROTEIN 5.3 gm/dL (6.4-8.2)
[2019-04-25 11:30] LABS: CARBON DIOXIDE 13 mmol/L (22-30)
--- NOTE | 2019-04-25 11:30 | NUR ---
Contacted by ED staff regarding implanted port. implanted port has been accessed and patient is refusing a tegaderm as a dressing. expained to patient unable to leave port accessed without an occlusive dressing. explained options of 2 different types of tegaderm. will use cavalion skin prep and allow to dry. patient reports she will develop a rask with tegaderm. explained to cover with skin prep and then a tegaderm. if needed, may have to obtain an order for low dose prednisone and/or benadryl for itching. with sterile technique cavalion skin prep and tegaderm applied.
[2019-04-25 11:36] LABS: ANISOCYTOSIS 2+; BAND 9 % (0-10); EOSINOPHIL 1 % (0-4); HYPOCHROMIA 1+; LYMPHOCYTE 2 % (20.0-51.0); METAMYELOCYTE 1 % (0-0); NEUTROPHILS 81 % (42.0-75.2); OVALOCYTES 1+; PLATELET ESTIMATE DECREASED (NORMAL)
[2019-04-25 11:37] LABS: TROPONIN-I < 0.012 ng/mL (0.000-0.035)
[2019-04-25] MEDS ORDERED: TESSALON P100 MG/CAP PO ×2 (12:22→15:46)
[2019-04-25] MEDS ORDERED: ZINC SULFATE220 M2 PO (12:22)
[2019-04-25] MEDS ORDERED: CIPRO 500MG TA500 MG PO (12:24)
[2019-04-25] MEDS ORDERED: AMITIZA24 MCG PO ×2 (12:24→16:05)
[2019-04-25 12:43] LABS: ARTERIAL BLD GAS O2 SATURATION 96.2 % (92-100); ARTERIAL BLOOD GAS BASE EXCESS -12.8 (-2-2); ARTERIAL BLOOD GAS HCO3 11.3 meq/L (22-26); ARTERIAL BLOOD GAS PO2 82.7 mmHg (80-100); ARTERIAL BLOOD GAS pH 7.35 (7.35-7.45)
--- NOTE | 2019-04-25 14:51 | NUR ---
Patient arrives to ICU 5 via ED cart and is attached to monitors. Assessment and vitals as charted. Care assumed.
[2019-04-25] MEDS ORDERED: VITAMIN C500 MG PO (15:39)
[2019-04-25] MEDS ORDERED: AQUAPHOR OINTM396 GM TP (15:48)
[2019-04-25] MEDS ORDERED: NOVOLOG MIX 70/33 ML SQ (15:52)
[2019-04-25] MEDS ORDERED: XIFAXAN550 MG PO (15:56)
[2019-04-25] MEDS ORDERED: MAG-OX 400400 MG/TAB PO (16:00)
[2019-04-25] MEDS ORDERED: PRIL40 PO (16:09)
[2019-04-25] MEDS ORDERED: DESYREL 50MG50 MG PO (16:10)
[2019-04-25] MEDS ORDERED: TYLENOL 325MG325 MG PO (16:12)
--- NOTE | 2019-04-25 17:26 | NUR ---
Vancomycin Initial Dosing Pharmacy Note Ordering provider: Beckie Bettencourt MD Indication/duration: EMPIRIC Relevant comorbidities: obesity LABS: WBC 10, SCr 2, CrCl ~30 Recommendation: vancomycin 15 mg/kg Loading dose: 1.5 grams Maintenance dose: 1.5 grams every 24 hours Trough goal: 15-20 ug/mL. Trough 04/29 @ 1700
[2019-04-25 18:03] LABS: COLLECTION METHOD CATHETER
[2019-04-25 18:18] LABS: BUDDING YEAST Present /hpf; MUCOUS Present /lpf; PH 5 (5-8); SQUAMOUS EPITHELIAL 0-2 /hpf; URINE APPEARANCE Cloudy; URINE BACTERIA Rare /hpf; URINE BILIRUBIN Negative (NEGATIVE); URINE BLOOD Negative (NEGATIVE); URINE COLOR Amber; URINE GLUCOSE Negative (NEGATIVE); URINE KETONE Negative (NEGATIVE); URINE LEUKOCYTE ESTERASE 1+ (NEGATIVE); URINE NITRATE Negative (NEGATIVE); URINE PROTEIN(semi-quant) Negative (NEGATIVE); URINE RBC 20-50 /hpf; URINE UROBILINOGEN Negative (NEGATIVE)
--- NOTE | 2019-04-25 19:20 | NUR ---
Bedside report provided to DIOGO Diaz.
--- NOTE | 2019-04-25 20:30 | NUR ---
Assisted with ravinder-care; patient reporting 10/10 pain in her buttocks due to ulceration on coccyx. Encouraged to reposition. Able to reposition herself independently. Patient is alert and oriented and mildly drowsy. Will continue to monitor.
[2019-04-25 21:16] LABS: CALCIUM 8.2 mg/dL (8.4-10.2); CREATININE, serum 1.98 (0.52-1.25); POTASSIUM 4.8 mmol/L (3.4-5.0)
--- NOTE | 2019-04-25 22:45 | NUR ---
Patient's respirations around 8/min while sleeping. Patient has been alert and oriented and mildly drowsy. Hospitalist notified; requested to make ICU status. Notified E-care nurse; awaiting further orders.
[2019-04-26] VITALS (474 sets, daily range): BP systolic 96–118; BP diastolic 51–83; PULSE 85–109; TEMP 97.4–97.8; O2SAT 75–100
--- NOTE | 2019-04-26 02:22 | NUR ---
Assisted with repositioning. Patient alert and oriented; slighly drowsy and unchanged from initial assessment. Cleansed ravinder-area and placed dressings over wounds to buttocks. Wound has moderate amount of yellow to lighly bloody drainage. Patient can turn independenly; will continue to encourage frequent position changes.
--- NOTE | 2019-04-26 03:11 | NUR ---
Notified E-care nurse regarding patient's low urine output. Albumin also low on lab draw. Suggest possilbe albumin infusion. Awaiting further orders.
[2019-04-26 04:51] LABS: MEAN CELL VOLUME 104 fl (80.0-100.0); MEAN CORPUSCULAR HGB CONC 32 g/dl (33.0-37.0); MEAN PLATELET VOLUME 9.7 fl (7.4-10.4); PLATELET COUNT 60 K/mm3 (130-400); RED BLOOD COUNT 2.43 M/mm3 (4.10-5.30); REDCELL DISTRIBUTION WIDTH-CV 22.1 % (11.5-14.5)
[2019-04-26 04:52] LABS: HEMATOCRIT 25.2 % (37.0-47.0); HEMOGLOBIN 8.1 g/dl (12.5-16.0); MEAN CORPUSCULAR HEMOGLOBIN 33 pg (27.0-31.0)
[2019-04-26 05:03] LABS: ALBUMIN 1.9 gm/dL (3.5-5.0); BILIRUBIN,TOTAL 4.3 mg/dL (0.0-1.0); CALCIUM 8.1 mg/dL (8.4-10.2); CREATININE, serum 1.98 (0.52-1.25); MAGNESIUM 1.6 mg/dL (1.6-2.3); PHOSPHOROUS 4.3 mg/dL (2.5-4.5); POTASSIUM 4.6 mmol/L (3.4-5.0); TOTAL PROTEIN 5.3 gm/dL (6.4-8.2)
[2019-04-26 05:13] LABS: LACTIC ACID 5.4 mmol/L (0.4-2.0)
[2019-04-26 05:44] LABS: INR 2.9 (0.8-3.0); PROTHROMBIN TIME 34.4 SECONDS (9.7-12.8)
[2019-04-26 05:56] LABS: BAND 3 % (0-10); EOSINOPHIL 2 % (0-4); LYMPHOCYTE 9 % (20.0-51.0); NEUTROPHILS 80 % (42.0-75.2); PLATELET ESTIMATE DECREASED (NORMAL)
[2019-04-26 05:57] LABS: ANISOCYTOSIS 2+; ROULEAUX 1+
--- NOTE | 2019-04-26 07:00 | NUR ---
BEDSIDE REPORT RECEIVED FROM DIOGO ARANDA. PATIENT SLEEPING AT THIS TIME.
--- NOTE | 2019-04-26 07:15 | NUR ---
Bedside report given to DIOGO Casanova. Patient care transfered. Assisted with repositioning with fellow nurse.
--- NOTE | 2019-04-26 10:30 | NUR ---
DR. DELATORRE ROUNDS ON THE PATIENT AT THIS TIME. ORDERS RECEIVED. WILL CALL CONSULTS FOR NEPHROLOGY, GENERAL SURGERY AND GI.
--- NOTE | 2019-04-26 14:30 | NUR ---
DR. KLEIN HERE TO SEE PATIENT
--- NOTE | 2019-04-26 15:30 | NUR ---
MACHINE MAINTENANCE student met with the patient to complete initial intake. The patient lives in [place]. The patient was at [facility] for a long term stay but the room was not put on hold. The patient reports if a long term stay is recommended she would like to go back to . The patient's DPOA-HC, Damien Craven and , agrees. The patient has a walker and reports independence with ADLs. The patient's PCP is DEAN Ferrer and the patient receives medications from [facility] with no difficulties. Advanced directives are in the EMR. client services associate will continue to follow to ensure a safe discharge.
--- NOTE | 2019-04-26 18:00 | NUR ---
DR. BIGGS HERE TO SEE PATIENT. ORDERS RECEIVED.
--- NOTE | 2019-04-26 19:30 | NUR ---
REPORT GIVEN TO DIOGO PADRON AT THIS TIME.
[2019-04-27] VITALS (882 sets, daily range): BP systolic 97–130; BP diastolic 49–75; PULSE 79–98; TEMP 97–98.8; O2SAT 73–99
[2019-04-27 05:26] LABS: MEAN CELL VOLUME 102 fl (80.0-100.0); MEAN CORPUSCULAR HGB CONC 33 g/dl (33.0-37.0); MEAN PLATELET VOLUME 9.4 fl (7.4-10.4); RED BLOOD COUNT 1.72 M/mm3 (4.10-5.30); REDCELL DISTRIBUTION WIDTH-CV 22.2 % (11.5-14.5)
[2019-04-27 05:32] LABS: HEMATOCRIT 17.6 % (37.0-47.0); HEMOGLOBIN 5.8 g/dl (12.5-16.0); MEAN CORPUSCULAR HEMOGLOBIN 34 pg (27.0-31.0)
[2019-04-27 05:33] LABS: PLATELET COUNT 26 K/mm3 (130-400)
[2019-04-27 05:38] LABS: ALBUMIN 2.8 gm/dL (3.5-5.0); BILIRUBIN,TOTAL 3.7 mg/dL (0.0-1.0); CALCIUM 8.3 mg/dL (8.4-10.2); CREATININE, serum 1.76 (0.52-1.25); POTASSIUM 4.3 mmol/L (3.4-5.0); TOTAL PROTEIN 5.5 gm/dL (6.4-8.2)
[2019-04-27 05:59] LABS: HEMATOCRIT 17.6 % (37.0-47.0); HEMOGLOBIN 5.8 g/dl (12.5-16.0)
[2019-04-27 06:05] LABS: BAND 3 % (0-10); LYMPHOCYTE 20 % (20.0-51.0); NEUTROPHILS 67 % (42.0-75.2)
[2019-04-27 08:32] LABS: INR 3.1 (0.8-3.0); PROTHROMBIN TIME 37.2 SECONDS (9.7-12.8)
[2019-04-27 12:49] LABS: HEMATOCRIT 20.4 % (37.0-47.0); HEMOGLOBIN 6.8 g/dl (12.5-16.0)
--- NOTE | 2019-04-27 15:58 | NUR ---
Met with Alisia today to discuss goals of care after she had been seen by Dr Lechuga. Pt is having trouble verbalizing her thoughts at times, voice is weak. Talked about goals of care, that he liver disease is not going away, that we hope she can improve but that her condition could also worsen quickly. She advises me that her friend, Damien Herber (also DPOA-HC) is coming to see her junaid and that she needs to talk with him about goals of care. She is thinking of wanting to be "comfortable and not going through any more procedures" but then also states that she would want to be kept alive no matter what. She recognizes that her condition may worsen at any time. She is wanting comfort but also wanting to continue to live. She was encouraged to talk with Damien junaid and if they reach a clear decision to let the nursing staff know so that we can follow her wishes. She also reported having a friend named Sadia Mehta who would also know what her wishes were and who she sees more often, but isn't her DPOA-HC. Then she referred back to Damien as her decision-maker. I asked that she talk with Damien and that I would stop to see her again tomorrow so we can clarify some of these things and make sure we are respecting her wishes. Today's conversation was very circular with no real decisions being made.
--- NOTE | 2019-04-27 20:30 | NUR ---
Resting in bed. Assessment complete. Upper lobe coarse crackles bilateral lower lobes diminshed. Denies shortness of breath. Heart sounds normal. Bowels active x4. Pulses present-weak throughout. Bilateral lower leg edema +3. Bilateral upper edema +2. Trunk edema +2. Patient has an unstageable pressure ulcer to coccyx- reddened wound boarders with slough in middle. Serosanguineous drainage present on bedpad. Bilateral lateral heels unstageable black pressure ulcers present-no drainge. Bilateral feet dry flaking skin. Right inner thigh ulcer-covered with mepilex. Lilliana area erythema. Midback erythema. Right inner arm abrasion. Left upper arm bruising. Right shoulder abrasion. Patient has PAC and PICC. Flushed without complications. Allen to dependent drainage without kinks. Cath care complete. Rectal tube in place with dark brown stool present. Rates pain 10/10 "in butt." Requested PRN yosi burns. Provided to patient. Will monitor.
[2019-04-27 20:46] LABS: MEAN CELL VOLUME 99 fl (80.0-100.0); MEAN CORPUSCULAR HGB CONC 33 g/dl (33.0-37.0); MEAN PLATELET VOLUME 10.3 fl (7.4-10.4); RED BLOOD COUNT 2.15 M/mm3 (4.10-5.30); REDCELL DISTRIBUTION WIDTH-CV 22.5 % (11.5-14.5)
[2019-04-27 20:50] LABS: HEMATOCRIT 21.3 % (37.0-47.0); HEMOGLOBIN 7.1 g/dl (12.5-16.0); MEAN CORPUSCULAR HEMOGLOBIN 33 pg (27.0-31.0)
[2019-04-27 20:52] LABS: PLATELET COUNT 41 K/mm3 (130-400)
--- NOTE | 2019-04-27 21:02 | NUR ---
Rating pain 10/10 in buttock/coccyx area. Recently repositioned. Provided with PRN oxycodone.
--- NOTE | 2019-04-27 21:15 | NUR ---
Obtained frozen plasma from lab. Received phone call stating patient oxygen saturation was 86% on 5 liters. Upon assessment of patient. No shortness of breath. Weak cough present. Auscultation of lungs-worsening coarse crackles in upper lobes. Spoke with Dr. Eubanks. Orders for lasix 40mg IV now, try bipap, hold fresh frozen plasma, and to contact [facility] for any other concerns. Plasma returned to lab. Given patient lasix. Patient refused bipap. Educated on purpose, risk of not wearing bipap. Patient agreed to wear bipap for 1 hour. Bipap applied by respiratory. Will monitor.
[2019-04-27 22:15] LABS: BAND 5 % (0-10); LYMPHOCYTE 10 % (20.0-51.0); NEUTROPHILS 84 % (42.0-75.2)
[2019-04-27 22:16] LABS: PLATELET ESTIMATE DECREASED (NORMAL)
[2019-04-27 22:19] LABS: ANISOCYTOSIS 3+; BURR CELLS 1+
[2019-04-27 22:20] LABS: HELMET CELLS 1+
--- NOTE | 2019-04-27 22:59 | NUR ---
Patient continues on bipap, asleep in bed at this time. 93% currently. 750ml of dark yellow cloudy urine emptied from liang bag. Will continue to monitor.
--- NOTE | 2019-04-27 23:43 | NUR ---
Contacted eICU for order to discontinue IV fluids.
[2019-04-28] VITALS (1136 sets, daily range): BP systolic 101–141; BP diastolic 52–74; PULSE 92–110; TEMP 98.2–100.5; O2SAT 59–99
--- NOTE | 2019-04-28 | NUR ---
Assessment completed. Coarse crackles throughout. Otherwise no change from previous assessment. Patient requested to be off bipap for repositioning and pericare. Allowed break-placed on 8 liters onymask 94% saturation. Repositioned. Patient request "45 minute break from that machine." Educated patient on risk and if oxygen saturation decreased during that time would need to replace mask. Agreed. Will monitor.
--- NOTE | 2019-04-28 00:16 | NUR ---
Patient called. Upon arrival in room patient states "you win." Patient explained "I feel like its much easier to breathe with it on." Placed back on bipap. Will monitor.
--- NOTE | 2019-04-28 01:46 | NUR ---
Rates coccyx pain 12/15. Repositioned at this time. Provided with PRN oxycodone. Denies other needs. Remains on bipap. Call light in reach.
[2019-04-28 03:46] LABS: BASO % 0.3 % (0.0-2.0); EOS # 0.1 (0.0-0.7); EOS % 0.9 % (0-4.0); GRAN # 5.4 (1.4-6.5); GRAN % 76.6 % (42.2-75.2); LYMPH # 0.8 (1.2-3.4); LYMPH % 11.5 % (20.0-51.0); MEAN CELL VOLUME 99 fl (80.0-100.0); MEAN CORPUSCULAR HGB CONC 33 g/dl (33.0-37.0); MEAN PLATELET VOLUME 9.3 fl (7.4-10.4); MONO # 0.6 (0.1-0.6); MONO % 9.1 % (1.7-9.3); RED BLOOD COUNT 2.37 M/mm3 (4.10-5.30); REDCELL DISTRIBUTION WIDTH-CV 22.8 % (11.5-14.5)
[2019-04-28 03:51] LABS: HEMATOCRIT 23.5 % (37.0-47.0); HEMOGLOBIN 7.8 g/dl (12.5-16.0); MEAN CORPUSCULAR HEMOGLOBIN 33 pg (27.0-31.0)
[2019-04-28 03:53] LABS: PLATELET COUNT 30 K/mm3 (130-400)
[2019-04-28 03:56] LABS: ALBUMIN 2.7 gm/dL (3.5-5.0); BILIRUBIN,TOTAL 6.8 mg/dL (0.0-1.0); CALCIUM 8.3 mg/dL (8.4-10.2); CREATININE, serum 1.57 (0.52-1.25); MAGNESIUM 1.7 mg/dL (1.6-2.3); POTASSIUM 4.2 mmol/L (3.4-5.0); TOTAL PROTEIN 5.6 gm/dL (6.4-8.2)
--- NOTE | 2019-04-28 04:00 | NUR ---
No change from previous assessment. Patient continued to wear bipap. Repositioned at this time to aide in pain relief. Denies other needs. Call light in reach.
[2019-04-28 04:07] LABS: TROPONIN-I 0.014 ng/mL (0.000-0.035)
[2019-04-28 04:16] LABS: INR 2.5 (0.8-3.0); PROTHROMBIN TIME 30.6 SECONDS (9.7-12.8)
[2019-04-28 04:25] LABS: FIBRINOGEN < 100 mg/dL (200-450)
--- NOTE | 2019-04-28 06:36 | NUR ---
Rating coccyx pain 10/10 and productive cough. Provided with PRN oxycodone and tessalon perles. Repositioned. Denies needs. Call light in reach.
--- NOTE | 2019-04-28 06:40 | NUR ---
Patient required x3 doses of oxycodone and x2 doses of tessalon. Remained on bipap throughout night. Currently on oxymask to make phone call. 8 liters 97%. Decreased flow rate to 7 liters. Will monitor. Repositioned Q2H. Allen output recorded. Rectal tube remains in place. Denies other needs this AM. Resting in bed. Call light in reach.
--- NOTE | 2019-04-28 06:51 | NUR ---
Decreased to 6 liters oxymask saturations 96%
--- NOTE | 2019-04-28 07:33 | NUR ---
Report given to DIOGO Patel
--- NOTE | 2019-04-28 09:38 | NUR ---
Met with patient and her friend Sadia Janine at bedside. Pt reports that she has spoken to her DPOA-HC Damienkath Craven as of last night and she has decided that she wants to be comfortable and to allow a natural to occur. This question was asked in several ways and each time she gave the same response and her friend verified her response. She does want to ouse the bipap for comfort and would like to start eating as she can. Will provide comfort quilt to her. Have discussed this with Ally RAGSDALE and she and Dr Vaca will visit with patient during rounds today.
--- NOTE | 2019-04-28 10:57 | NUR ---
Pt talked with this nurse this morning stating that she wanted to have comfort care and did not want things done to prolong her life, that she realized that her time was very limited and she just wanted to be comfortable. We did talk about where she could do comfort care and that eventually would transfer to a facility--[facility] vs [facility] for the remainder of her comfort care. At the mention of hospice by Dr Vaca pt began to request more aggressive cares, including blood products and medications and pain medications to keep her comfortable. She is now refusing to go to [facility] and wants to do everything here--all aggressive measures except does not want a tube down her throat or to be coded. At one point pt stated she would go home with her friend Sadia and set up her own hospice if we tried to transfer her. Conversation was ended and DPOA-HC Damien Craven was contacted. Damien indicates that he had talked with Alisia last night and had decided to go on comfort care which was supported by Ava her nurse and Dr Stein who was also in the room for part of this conversation. Damien reports that Sadia does not follow through with her plans to care for Alisia and contributes to pt's agitation. He will try to talk with pt again today and is supportive of transfer to [facility] as he has had relatives there. We will let pt calm down, Sadia has left the room. Damien will advise staff after he can talk with Alisia and will act as her DPOA-HC for this matter if she cannot make a reasonable decision.
--- NOTE | 2019-04-28 13:19 | NUR ---
Pallative care is following along. The patient would like to continue current treatment and continue aggressive care but does not want to transfer to [facility] for further care. director of services will continue to follow.
--- NOTE | 2019-04-28 14:41 | NUR ---
The patient requested a list of hospice agencies. SHOE DESIGNER student provided Medicare.gov's list of hospice agencies in the geographical location of the patient's residence. financial services manager will continue to follow.
--- NOTE | 2019-04-28 17:32 | NUR ---
SEE FLOW SHEET FOR ORAL TEMPERATURE OBTAINED @ 99.8 DEGREES F. AXILLARY TEMP OBTAINED INITIALLY @ 102.8. PATIENT HOT TO TOUCH. SEE OTHER CHARTED VITAL SIGNS. DR DELATORRE NOTIFIED. NO NEW ORDERS RECEIVED. UNABLE TO GIVE ANTIPYRETICS D/T LIVER FAILURE.
--- NOTE | 2019-04-28 20:00 | NUR ---
PATIENT IS AWAKE ALERT, TRYING TO CONVINCE STAFF THAT SHE IS GOING HOME VERY SOON. "I JUST HAVE TO SEE MY CAT". SLEEPS EASILY,
[2019-04-29] VITALS (1194 sets, daily range): BP systolic 109–133; BP diastolic 53–69; PULSE 96–112; TEMP 98.4–100.8; O2SAT 84–98
[2019-04-29 06:50] LABS: BASO % 0.4 % (0.0-2.0); EOS % 0.5 % (0-4.0); GRAN # 6.9 (1.4-6.5); GRAN % 84.4 % (42.2-75.2); LYMPH # 0.5 (1.2-3.4); LYMPH % 6.1 % (20.0-51.0); MEAN CELL VOLUME 99 fl (80.0-100.0); MEAN CORPUSCULAR HGB CONC 34 g/dl (33.0-37.0); MEAN PLATELET VOLUME 12.6 fl (7.4-10.4); MONO # 0.6 (0.1-0.6); MONO % 7.5 % (1.7-9.3); RED BLOOD COUNT 2.29 M/mm3 (4.10-5.30); REDCELL DISTRIBUTION WIDTH-CV 22.7 % (11.5-14.5)
[2019-04-29 06:54] LABS: ALBUMIN 2.3 gm/dL (3.5-5.0); BILIRUBIN,TOTAL 6.8 mg/dL (0.0-1.0); CALCIUM 7.8 mg/dL (8.4-10.2); CREATININE, serum 1.31 (0.52-1.25); POTASSIUM 4.1 mmol/L (3.4-5.0); TOTAL PROTEIN 5.2 gm/dL (6.4-8.2)
[2019-04-29 06:59] LABS: HEMATOCRIT 22.7 % (37.0-47.0); HEMOGLOBIN 7.7 g/dl (12.5-16.0); MEAN CORPUSCULAR HEMOGLOBIN 34 pg (27.0-31.0); PLATELET COUNT 36 K/mm3 (130-400)
[2019-04-29 07:13] LABS: INR 3.2 (0.8-3.0); PROTHROMBIN TIME 38.4 SECONDS (9.7-12.8)
--- NOTE | 2019-04-29 17:00 | NUR ---
ALVIN Quezada here with pt discussing goals, discussions of hospice care were undecided at this time - MD Lio aware
[2019-04-30] VITALS (1221 sets, daily range): BP systolic 95–125; BP diastolic 45–66; PULSE 95–104; TEMP 98.6–99.4; O2SAT 73–99
[2019-04-30 05:17] LABS: MEAN CELL VOLUME 100 fl (80.0-100.0); MEAN CORPUSCULAR HGB CONC 34 g/dl (33.0-37.0); MEAN PLATELET VOLUME 10.9 fl (7.4-10.4); RED BLOOD COUNT 2.27 M/mm3 (4.10-5.30); REDCELL DISTRIBUTION WIDTH-CV 23.2 % (11.5-14.5)
[2019-04-30 05:20] LABS: HEMATOCRIT 22.8 % (37.0-47.0); HEMOGLOBIN 7.7 g/dl (12.5-16.0); INR 2.9 (0.8-3.0); MEAN CORPUSCULAR HEMOGLOBIN 34 pg (27.0-31.0); PROTHROMBIN TIME 34.6 SECONDS (9.7-12.8)
[2019-04-30 05:22] LABS: PLATELET COUNT 30 K/mm3 (130-400)
[2019-04-30 05:24] LABS: ALBUMIN 2.1 gm/dL (3.5-5.0); BILIRUBIN,TOTAL 6.3 mg/dL (0.0-1.0); CALCIUM 7.7 mg/dL (8.4-10.2); CREATININE, serum 1.13 (0.52-1.25); MAGNESIUM 1.6 mg/dL (1.6-2.3); POTASSIUM 4.1 mmol/L (3.4-5.0); TOTAL PROTEIN 4.9 gm/dL (6.4-8.2)
[2019-04-30 05:58] LABS: ANISOCYTOSIS 2+; BAND 6 % (0-10); LYMPHOCYTE 13 % (20.0-51.0); NEUTROPHILS 80 % (42.0-75.2); PLATELET ESTIMATE DECREASED (NORMAL)
--- NOTE | 2019-04-30 10:00 | NUR ---
Pt's friend Sadia here with pt. Pt in tears stating "I want the social media editor to remove Damien as DPOA because he has my truck and wont let Sadia use it." Legal Financial Specialist called to come down while Sadia is here to talk Pt unable to decide if she wants aggressive care or comfort care, pt educated hospital staff will continue with current aggressive care plan until otherwise stated by pt. Damien called in stating he "just wants Patricia to be comfortable, I think she needs to [facility]".
--- NOTE | 2019-04-30 14:50 | NUR ---
Pt states wish to speak with Hydrogen Braze Furnace Operator or Nurse Pond Tender - prior to request pt required bed change with pericare that was painful for pt. DIOGO Trinidad HouseSupervisor notified.
--- NOTE | 2019-04-30 15:36 | NUR ---
Jewel Stringer called multiple times with no answer. At this time Jewel Stringer did answer stating she left note for Enrollment Counselor to address issues in the morning.
--- NOTE | 2019-04-30 16:01 | NUR ---
seafood process worker spoke with patient's nurse Adi regarding details of the patient's advance directives for healthcare and living will paperwork. Patient's friend Sadia is no longer present at the hospital and patient is back on bipap machine. seafood process worker contacted patient's durable power of research attorney Damien Anthony ([phone]) to discuss details of patient's advance directives for healthcare and living will. Damien reported that approximately three months ago the patient approached him about taking over durable power of research attorney responsibilities for her because her friend Sadia allegedly was not doing a good matte cutter job and was leaving the patient at home alone more often that the patient wanted. Damien reported that since he took over DPOA responsibilities he has been helping the patient to pay her bills and also has repaired the patient's truck by paying for a new set of tires and repairing the heat which cost approximately $600. Damien stated he does have the patient's truck and desires to not give the patient's items and belongings to anyone until he is no longer the patient's DPOA. Damien stated he is concerned that Sadia is too worried about the patient's belongings and fears that Sadia wants the patient's items more than caring about the patient's health and safety. seafood process worker actively listened and provided emotional support. seafood process worker informed Damien that she will be notifying her education department chair (Reta Mejia) of the situation so that the details can be monitored and dealt with in regards to what is best for the patient's quality of life. seafood process worker contacted supervisor corduroy cutting Reta Mejia and updated her on the patient's situation and manager social media will be following up on 05/01/19. No further needs at this time.
[2019-05-01] VITALS (572 sets, daily range): BP systolic 102–146; BP diastolic 46–81; PULSE 92–101; TEMP 98.2–99.8; O2SAT 78–97
[2019-05-01 08:49] LABS: BASO % 0.3 % (0.0-2.0); EOS # 0.1 (0.0-0.7); EOS % 1.1 % (0-4.0); GRAN % 82.1 % (42.2-75.2); LYMPH # 0.6 (1.2-3.4); LYMPH % 5.8 % (20.0-51.0); MEAN CELL VOLUME 102 fl (80.0-100.0); MEAN CORPUSCULAR HGB CONC 33 g/dl (33.0-37.0); MONO # 1.1 (0.1-0.6); MONO % 10.2 % (1.7-9.3); RED BLOOD COUNT 2.51 M/mm3 (4.10-5.30); REDCELL DISTRIBUTION WIDTH-CV 23.3 % (11.5-14.5)
--- NOTE | 2019-05-01 08:54 | NUR ---
Damien ESQUIVEL, calls at this time to check on patient and asks for updates. Updates given.
[2019-05-01 08:58] LABS: CALCIUM 7.8 mg/dL (8.4-10.2); CREATININE, serum 0.95 (0.52-1.25); POTASSIUM 4.3 mmol/L (3.4-5.0)
[2019-05-01 08:59] LABS: HEMATOCRIT 25.6 % (37.0-47.0); HEMOGLOBIN 8.5 g/dl (12.5-16.0); MEAN CORPUSCULAR HEMOGLOBIN 34 pg (27.0-31.0)
[2019-05-01 09:00] LABS: PLATELET COUNT 39 K/mm3 (130-400)
--- NOTE | 2019-05-01 09:30 | NUR ---
Sadia, friend of patient, at bedside this AM. Talking with patient at this time about a list of personal items patient wants if she were to go to [facility]. Sadia and patient state to this RN that Sadia will be going to [facility] to tour facility and ask questions for patient. This RN overheard conversation, Sadia was asking patient where the safe was, asks "does he have it at this house?" Patient states "yes, the barriga" and friend, Sadia, then states "He has your safe at his house?!" Patient again states, "No, he has the barriga at his house"
--- NOTE | 2019-05-01 10:03 | NUR ---
The patient reports she would like her friend, Sadia to go visit the [facility]. Sadia reports she will go this afternoon. [facility] student offered to invite a [facility] hospital sales representative visit with the patient. The patient would like to wait until Sadia visits there first. director patient financial services will continue to follow.
--- NOTE | 2019-05-01 10:55 | NUR ---
INTERNAL REVENUE AGENT student contacted the patient's DPOA-HC, Damien about [facility]. Damien reports he would like a [facility] hr representative visit with the patient. [facility] reports they can visit with the patient at 1330 this day. Damien would like to be part of the visit via conference call. mountain services manager will continue to follow.
--- NOTE | 2019-05-01 16:30 | NUR ---
Dr. Zamora and social work in at bedside for care meeting with DPOA and friends.
--- NOTE | 2019-05-01 16:57 | NUR ---
REVENUE ACCOUNTANT student attended a meeting with the hospitalist, patient's DPOA-HC, Damien, her friend Sadia, Loli and Loli's regarding the goals of care. The patient reports she will make a decision tomorrow. 05/02. All were in agreeance. director of creative services will continue to follow.
--- NOTE | 2019-05-01 19:38 | NUR ---
Bedside report given to Gabbie LIND
[2019-05-02] VITALS (342 sets, daily range): BP systolic 116–137; BP diastolic 51–71; PULSE 97–114; TEMP 98.4–98.6; O2SAT 78–100
[2019-05-02 04:43] LABS: MEAN CELL VOLUME 100 fl (80.0-100.0); MEAN CORPUSCULAR HGB CONC 33 g/dl (33.0-37.0); MEAN PLATELET VOLUME 9.5 fl (7.4-10.4)
[2019-05-02 04:47] LABS: MEAN CORPUSCULAR HEMOGLOBIN 33 pg (27.0-31.0)
[2019-05-02 04:49] LABS: PLATELET COUNT 28 K/mm3 (130-400)
[2019-05-02 04:52] LABS: ALBUMIN 1.9 gm/dL (3.5-5.0); BILIRUBIN,TOTAL 8.4 mg/dL (0.0-1.0); CALCIUM 7.7 mg/dL (8.4-10.2); CREATININE, serum 0.86 (0.52-1.25); POTASSIUM 4.3 mmol/L (3.4-5.0); TOTAL PROTEIN 4.8 gm/dL (6.4-8.2)
[2019-05-02 05:19] LABS: BAND 17 % (0-10); LYMPHOCYTE 9 % (20.0-51.0); METAMYELOCYTE 1 % (0-0); NEUTROPHILS 63 % (42.0-75.2); OVALOCYTES 1+
--- NOTE | 2019-05-02 08:00 | NUR ---
This RN at bedside to talk with patient. Patient states she does want to go to [facility], will notify social work and get arrangements made. Patient also states she would like to change her Medical DPOA. Social work aware
--- NOTE | 2019-05-02 09:59 | NUR ---
The patient would like to change her DPOA-HC. ARMORED VEHICLE OFFICER student collaborated with the patient's nurse to ensure the patient did not have any substance that would alter the patient's mental status. The nurse reports it has been 6 hours since any of those kinds of medications would no longer effect the patient. ARMORED VEHICLE OFFICER student met with the patient to discuss changing DPOA-HC. The patient reports she knows she will be revoking the current DPOA-HC Damien Craven and designating a new DPOA-HC Sadia Mehta and knows it is ONLY for medical purposes. DPOA-HC form was witnessed by the patient's nurse, Ava and ARMORED VEHICLE OFFICER student. A copy was placed in the chart and the original and copies were provided for the patient. The patient has decided to send a referral to the [facility]. Referral sent. Awaiting response.
--- NOTE | 2019-05-02 14:12 | NUR ---
[facility] reports they can take the patient tomorrow, 05/03 at 1330. LEAD GENERATION SPECIALIST student informed the team, patient, and the patient's DPOA-HC, Sadia. All were in agreeance. [facility] reports they can transport the patient and be here at 1330. director patient financial services will continue to follow.
--- NOTE | 2019-05-02 22:45 | NUR ---
Patient had coughing fit with red tinged, thick mucous. Patient was able to cough most up herselft but we did give her suction to help. Patient now resting comfortably with BIPAP on, repositioned to her left side. Patient able to follow some commands but her cognition seems to come and go. Patient also displaying repetitive motions like wringing the bedding or wiping the BIPAP mask. Patient refused pain medications at this time. Allen draining to gravity and rectal tube still in place with fecal material in tubing. Coccyx wound cleansed and redressed with ABD pad-moderate drainage noted with repositioning. Mepilex intact to right thigh wound, escar intact to heel wound. Since coughing episode, patient saturations now up to 96% with BIPAP where previously they were 90-92%. Patient still tachycardic at 110 bpm.
[2019-05-03] VITALS (418 sets, daily range): PULSE 110–112; O2SAT 31–100
--- NOTE | 2019-05-03 07:00 | NUR ---
BEDSIDE REPORT RECEIVED FROM DIOGO HAMILTON. PATIENT SLEEPING WITH BIPAP IN PLACE FOR COMFORT.
[2019-05-03] MEDS ORDERED: RT ALBUTER2.5 MG/0.5 IH (09:18)
[2019-05-03] MEDS ORDERED: ROXANOL 20MG20 MG/ML SL (09:18)
[2019-05-03] MEDS ORDERED: LORAINT SL (09:21)
[2019-05-03] MEDS ORDERED: ZOFRAN ODT4 MG PO (09:22)
[2019-05-03] MEDS ORDERED: TRANSDERM-0.5 MG/21 TD (09:22)
--- NOTE | 2019-05-03 09:45 | NUR ---
BIPAP REMOVED PER PATIENT REQUEST. SHE ALSO ASKS FOR ROXANOL FOR PAIN AND DISCOMFORT.
--- NOTE | 2019-05-03 10:17 | NUR ---
Provided comfort quilt to patient who is scheduled to go to [facility] Later today. I did speak with Jaswinder at [facility] who is requesting she be ordered only oral medications. Initially did request that PICC be removed but due to very low platelets, will leave in place but they report they are not planning to use. This was relayed to primary nurse Jocelyne and to Tyra with [facility].
--- NOTE | 2019-05-03 10:30 | NUR ---
PICC intact left upper arm with sterile dressing change done with insertion site cleansed with chloraprep x 1, chlohexidine impregnated disk applied, skin prep, stat lock, and tegdaerm applied. no signs or symptoms of IV complications noted. no concerns voiced. re-wrapped with jono to protect catheter. [facility].
--- NOTE | 2019-05-03 10:56 | NUR ---
The patient is to discharge today, 05/03 to the [facility] [address]. [facility] will be here at 1330 to transport the patient. LIVESTOCK FARMERS student presented the IM form to the patient and the patient's DPOA-HC, Sadia. Sadia understood and signed the form. A copy was provided to the patient and original was placed in the chart. Discharge orders to be faxed. Scripts were faxed to [facility]. There are no additional needs at this time.
--- NOTE | 2019-05-03 12:10 | NUR ---
CALL TO MELYSSA LEMOS REGARDING PAIN MEDICATION. SHE GIVES PERMISSION TO INCREASE FREQUENCY OF ROXANOL TO EVERY HOUR NEEDED FOR PAIN. ROXANOL ADMINSITERED. SEE NOTE IN EMAR.
--- NOTE | 2019-05-03 13:47 | NUR ---
Patient leaves with EMS at this time. Report given to EMT and Rn Document Improvement Specialist. Report also called to [facility] at this time. Anna Rodriguez RN takes report.
== END 2019-05-03 13:50 | disposition hospice, inpatient (51) | DRG 441 ==
LOC: COL.ER 09:50 → ICU 13:25 → EU 04-27 08:43 → ICU 04-27 08:43
PROVIDERS: Family Medicine; Hospitalist; Internal Medicine; Nurse Practitioner Family; Physician Assistant; ADMIT Student in an Organized Health Care Education/Training Program
PROC: 02HV33Z Insertion of Infusion Device into Superior Vena Cava, Percutaneous Approach (ICD-10-PCS; principal; 2019-04-26)
DX: K72.90 Hepatic failure, unspecified without coma (principal); E43 Unspecified severe protein-calorie malnutrition; K76.7 Hepatorenal syndrome; J96.01 Acute respiratory failure with hypoxia; E87.2 Acidosis; R65.10 Systemic inflammatory response syndrome (SIRS) of non-infectious origin without acute organ dysfunction; N17.9 Acute kidney failure, unspecified; D61.818 Other pancytopenia; L97.429 Non-pressure chronic ulcer of left heel and midfoot with unspecified severity; L97.419 Non-pressure chronic ulcer of right heel and midfoot with unspecified severity; D68.2 Hereditary deficiency of other clotting factors; R18.8 Other ascites; N39.0 Urinary tract infection, site not specified; Z66 Do not resuscitate; Z51.5 Encounter for palliative care; K75.81 Nonalcoholic steatohepatitis (NASH); L89.152 Pressure ulcer of sacral region, stage 2; L89.322 Pressure ulcer of left buttock, stage 2; E03.9 Hypothyroidism, unspecified; D69.6 Thrombocytopenia, unspecified; E83.42 Hypomagnesemia; R13.10 Dysphagia, unspecified; I95.9 Hypotension, unspecified; G40.909 Epilepsy, unspecified, not intractable, without status epilepticus; E11.9 Type 2 diabetes mellitus without complications; G47.00 Insomnia, unspecified; E66.01 Morbid (severe) obesity due to excess calories; E88.09 Other disorders of plasma-protein metabolism, not elsewhere classified; R53.81 Other malaise; Z68.38 Body mass index [BMI] 38.0-38.9, adult; Z90.710 Acquired absence of both cervix and uterus; Z87.891 Personal history of nicotine dependence; Z85.42 Personal history of malignant neoplasm of other parts of uterus; Z79.4 Long term (current) use of insulin
CPT/HCPCS: 99223-AI; 99233-AI; 99239; A4216; A4314; C1751; C9113; J0692; J1644; J1815; J1940; J2270; J2405; J3370; J3430; J3475; J7030; J7050; J7120; P9016; P9035; P9047